=== PATIENT | female | born 1965 | race Caucasian/White ===

== ENCOUNTER → 2023-07-30 13:39 | Outpatient (REF) | payer OTHER, SELFPAY | LOC: HWRAD 13:39 | PROVIDERS: ATTENDING PHYSICIAN Family Medicine | DX: E03.9 Hypothyroidism, unspecified (principal) | CPT/HCPCS: 76536 ==

== ENCOUNTER → 2023-08-01 09:11 | Outpatient (REF) | payer OTHER, SELFPAY | LOC: HWRAD 09:11 | PROVIDERS: ATTENDING PHYSICIAN Internal Medicine Cardiovascular Disease; FAMILY PHYSICIAN Family Medicine; REFERRING PHYSICIAN Internal Medicine Rheumatology | DX: I65.21 Occlusion and stenosis of right carotid artery (principal); L40.50 Arthropathic psoriasis, unspecified; M15.9 Polyosteoarthritis, unspecified; M16.0 Bilateral primary osteoarthritis of hip; M25.50 Pain in unspecified joint | CPT/HCPCS: 71046; 72052; 73030; 73523; 93880 ==

== ENCOUNTER → 2023-08-05 11:56 | Outpatient (REF) | payer OTHER, SELFPAY | LOC: HWRAD 11:56 | PROVIDERS: ATTENDING PHYSICIAN Family Medicine | DX: Z78.0 Asymptomatic menopausal state (principal) | CPT/HCPCS: 77080 ==

== ENCOUNTER → 2023-12-23 16:20 | Outpatient (REF) | payer OTHER, SELFPAY | LOC: HWRAD 16:20 | PROVIDERS: ATTENDING PHYSICIAN Specialist; FAMILY PHYSICIAN Family Medicine | DX: N20.0 Calculus of kidney (principal) | CPT/HCPCS: 74018 ==

== ENCOUNTER → 2023-12-30 15:17 | Outpatient (REF) | payer OTHER, SELFPAY | LOC: HWRAD 15:17 | PROVIDERS: ATTENDING PHYSICIAN Specialist; FAMILY PHYSICIAN Family Medicine | DX: N20.0 Calculus of kidney (principal) | CPT/HCPCS: 74176 ==

== ENCOUNTER 2024-09-21 06:13 | Day surgery (SDC) | payer OTHER, SELFPAY ==
[2024-09-21 11:00] VITALS: BMI 24.2
[2024-09-21 11:03] VITALS: BP 137/83
[2024-09-21] MEDS: NORMOSOL-R/PLASMALYTE-A 1000 IV (11:17)
[2024-09-21] MEDS: TRANSDERM-SCOP 1 PATCH TRANSDERM (11:18)
[2024-09-21 12:50] VITALS: BP 123/86; BP 137/83
[2024-09-21 13:00] VITALS: BP 120/78
[2024-09-21] MEDS: Pyridium 200 MG PO (13:13)
[2024-09-21 13:15] VITALS: BP 123/90
[2024-09-21 13:30] VITALS: BP 113/76
[2024-09-21 13:45] VITALS: BP 116/81
== END 2024-09-21 14:00 | disposition home or self-care (01) ==
LOC: SDS 06:13
PROVIDERS: ATTENDING PHYSICIAN Specialist
DX: N20.0 Calculus of kidney (principal)
CPT/HCPCS: 52356; 74018; 76000; 82365; C1894; C2617

== ENCOUNTER 2024-09-23 17:02 | Inpatient (IN) | payer OTHER, SELFPAY ==
[2024-09-23 13:36] VITALS: BMI 27.8
[2024-09-23 13:39] VITALS: BP 168/106
[2024-09-23] MEDS: DECADRON 10 MG IV (16:02)
[2024-09-23] MEDS: NSS 1000 IV ×2 (16:03→20:46)
[2024-09-23] MEDS: PEPCID 20 MG IV (16:07)
--- NOTE | 2024-09-23 16:07 | ED.GENMED ---
History of Present Illness
General
Chief Complaint: Allergic Reaction
Source: patient, records and spouse
Exam Limitations: none
Time Seen by Provider: 09/23/24 15:35
Nursing documentation reviewed up to this point in time: agreed with
History of Present Illness
History of Present Illness:
59-year-old female long history of allergic reactions to latex, she claims she is allergic to plastic stents previously in [place] and for country, had a urologic procedure with a stent a few days ago since then she has had swelling of her face
itching took an EpiPen today, she would like to have her stent removed
Past History
Past History
ED Past Medical History: HTN, Hypercholesterolemia, Hypothyroidism and Other (Hepatitis C, cervical and lumbar disc disease, migraine headache, kidney stones)
ED Past Surgical History: Urological and Other (Right rotator cuff surgery 12/22/15)
Social History
Tobacco: Non-smoker
Alcohol: None
Drug: None
Personal:
Living: with family
Employment: Employed (realtor)
Family History
Family History: Other (nc)
Review of Systems
Review of Systems
All Other Systems: Not applicable
Constitutional: Denies fever or chills
Respiratory: Denies trouble breathing
ABD/GI: Reports no symptoms
Skin: Reports itching, rash and other (Facial)
Neurological: Reports no symptoms
Phy Exam
Physical Exam
Physical Exam:
Physical Exam
General: 59 female nontoxic scratching at her face and neck
Neck: Lips are slightly swollen
Heart: s1/s2 regular rate and rhythm, no murmur. equal radial pulses.
Lungs: No wheeze
Neuro: alert and oriented. no focal neurological deficits
Skin: Red skin
Psychiatric: well kept. interactive and cooperative
Extremities: no edema.
Course
Orders/Labs/Results
Orders:
Orders
09/23/24 15:45
IV Insert/Care/Rem.- Treatment PRN
0.9% Sodium Chloride 1000 ml [Nss] 1,000 ml IV BOLUS
Dexamethasone Sod Phosphate [Decadron] 10 mg IV NOW STA
Diphenhydramine [Benadryl] 25 mg IV NOW STA
Famotidine [Pepcid] 20 mg IV NOW STA
09/23/24 16:02
Complete Blood Count/With Diff Urgent
Comprehensive Metabolic Panel Urgent
09/23/24 16:40
Admit/Transfer Patient As Directed
Co-Sign Provider:
Level of Care: Inpatient admission
Assign to:: Telemetry
Physician / Group: Lauren Oconnell
Diagnosis: severe allergic reaction
Reason for Telemetry: Chest Pain syndromes
Date to Stop Telemetry: 09/25/24
Time to Stop Telemetry: 11:00
Reason for Hospitalization: severe allergic reaction
Expected length of stay greater than two midnights?: Yes
ELOS- Estimated Length of Stay in days: 2
I certify the patient meets the requirements for IP care: Yes
PRN Pain Medication Management As Directed
May give lesser potent ordered pain med per pt: Yes
preference::
Protocol:: Medication orders for pain may be administered in a
manner that supports deferring to patient preference
when the pt is:
- Requesting an ordered lesser potent pain medication.
Least to most potent pain medications are defined
as: acetaminophen < NSAID < tramadol < opioids
(morphine, oxycodone, hydromorphone).
- Requesting a lesser dose of the same medication IF
ORDERED.
- Requesting a less intrusive route of administration
if both routes are prescribed by the provider (PO <
IV).
09/23/24 16:41
Code Status As Directed
Resuscitation Status: Full Code
09/23/24 16:[address] Non Medication Order As Directed
Physician Order: please TT me when med rec complete
09/25/24 11:00
DC Protocol for Telemetry ONCE
Abnormal Lab Results
09/23/24
16:02
WBC 12.3 H 10^3/uL
(4.8-10.8)
Absolute Neuts (auto) 10.2 H 10^3/uL
(1.4-6.5)
Absolute Lymphs (auto) 1.1 L 10^3/uL
(1.2-3.4)
Absolute Monos (auto) 0.8 H 10^3/uL
(0.1-0.6)
Neutrophils % 82.7 H %
(42.2-75.2)
Lymphocytes % 8.7 L %
(20.5-51.1)
09/23/24 16:02
Vital Signs
Initial and Last Documented VS:
Initial Vital Signs
Temp Pulse Resp BP Pulse Ox
98.4 F 111 24 168/106 99
09/23/24 13:39 09/23/24 13:39 09/23/24 13:39 09/23/24 13:39 09/23/24 13:39
Last Documented Vital Signs
Temp Pulse Resp BP Pulse Ox
98.4 F 111 24 168/106 99
09/23/24 13:39 09/23/24 13:39 09/23/24 13:39 09/23/24 13:39 09/23/24 13:39
MDM/Problems Addressed
Differential Diagnosis Includes:
Allergic reaction perhaps to plastic stent perhaps the meds perhaps anesthesia
MDM/Problems Addressed:
Allergic rash
Chronic conditions affecting care:
Allergy
Acute Exacerbation and/or Progression of Chronic Illness:
Allergy
*Pulse Oximetry
Patient hypoxic: no
*Nylon Operator Interpretation
Rate: normal
Interpretation: normal
Heart Rate: 110
Rhythm: sinus
*Critical Care Note
Total Time (30-74mins, 75-104mins- exclusive of procedures): Not Applicable
Data Reviewed
Review of Other/Old Records Reveals: Other (Picture of the patient's face from today's really does look swollen and erythematous with hives)
Prescriptions/Medications Considered But Not Given:
Benadryl patient refused states she already took it today repeat epi dose
Further Testing Considered But Not Given:
Image
Update Note
Update Note:
Presumed allergic reaction patient hemodynamically stable did not improve with epinephrine reviewed with her treating physician still, severe consider taking her stent out
Reviewed with urology they will take her stent out asked hospitalist to admit her for recurrence of her symptoms and follow her renal function as stent will need to be taken out early
ED Attending Note
-
Portions of this chart may have been created with voice recognition software.� Occasional wrong word or��sound alike� substitutions may have occurred due to the inherent limitations of voice recognition software.
Discharge Plan
Departure
Patient Disposition: Admit
Date of Disposition: 09/23/24
Time of Disposition: 16:48
Admit to: Med/Surg
Presentation/result/management discussed w/ accepting MD/DO: Hospitalist
Patient with high blood pressure during this ER visit?: No
Condition: Fair
Discharge Problem:
Allergic reaction
Prescriptions:
No Action
alprazolam 0.5 MG tablet
0.5 mg PO DAILY PRN (Reason: panic attack/anxiety)
Patient Comments:
09/22/2022: last filled 07/29/22, 30 tabs for 30 days from [facility]
Bijuva 1 EACH capsule
1 ea PO HS
gabapentin 600 mg tablet
600 mg PO DAILY
levothyroxine 88 mcg tablet
88 mcg PO DAILY
zolpidem 10 mg tablet
10 mg PO HS PRN (Reason: insomnia)
Patient Comments:
09/22/2022: last filled 08/21/22, 30 tabs for 30 days from [facility]
ondansetron 4 mg tablet,disintegrating
4 mg PO DAILY PRN (Reason: nausea/vomiting)
mirabegron [Myrbetriq] 50 mg tablet extended release 24 hr
50 mg PO DAILY
Ajovy Syringe 225 mg/1.5 mL syringe
225 mg SC MONTHLY
carvedilol 12.5 mg Tablet
12.5 mg PO BID
amlodipine 10 mg Tablet
10 mg PO DAILY
potassium citrate 15 mEq tablet extended release
15 meq PO DAILY
Voquezna 10 mg Tablet
10 mg PO DAILY
Interventions
Interventions:
*Risk Screen - Suicide Last Done: 09/23/24 13:41
*Neglect/Abuse Screening Last Done: 09/23/24 13:41
Discharge Date and Time
Print Language: TRISTANIAN
[2024-09-23 16:11] VITALS: BP 132/81
[2024-09-23 16:18] LABS: % Basophils 0.5 % (0-2); % Eosinophils 1.5 % (0-6); % Immature Granulocytes 0.3 % (0-0.5); % Lymphocytes 8.7 % (20.5-51.1); % Monocytes 6.3 % (1.7-9.3); % Neutrophils 82.7 % (42.2-75.2); Absolute Basophils 0.1 10^3/uL (0-0.2); Absolute Eosinophils 0.2 10^3/uL (0-0.7); Absolute Lymphocytes 1.1 10^3/uL (1.2-3.4); Absolute Monocytes 0.8 10^3/uL (0.1-0.6); Absolute Neutrophils 10.2 10^3/uL (1.4-6.5); Hematocrit 40.8 % (37.0-47.0); Hemoglobin 13.7 g/dL (12.0-16.0); Mean Corp Hgb Conc. 33.6 g/dL (33.0-37.0); Mean Corpuscular Volume 89.5 fL (81.0-99.0); Mean Platelet Volume 10.2 fL (7.4-10.4); Nucleated Red Blood Cells % 0 %; Platelet Count 300 10^3/uL (130-400); Red Blood Cell Count 4.56 10^6/uL (4.20-5.40); Red Cell Dist. Width 13.5 % (11.5-14.5); White Blood Cell Count 12.3 10^3/uL (4.8-10.8)
--- NOTE | 2024-09-23 16:27 | HPS.HSE ---
Family Physician
-
Family Physician:
Chief Complaint
-
swelling
History of Present Illness
Ms. Tresa Deras is a 59 yo woman with hx essential HTN, HLD, hypothyroidism, allergy to lasix, nephrolithiasis s/p recent complex bilateral ureteroscopy with laser lithotripsy and placement of a bilateral J-stent placement (09/21/24) presents to the
ER with concerns she is having an allergic reaction to plastic stent.
This morning patient states she had mild lip swelling took benadryl. She then noted that her tongue was more swollen and it was difficult to swallow pills. She used her Epi pen with relief of swelling and came to the ER. Currently speaking and
swallowing okay.
Patient states she had a plastic stent placed years ago with similar reaction and it resolved once taken out. She was also prescribed amoxicillin and Vicadin post op which she states she has taken before without issue.
No fevers/chills. No chest pain or shortness of breath. No nausea/vomiting/diarrhea. No LE swelling.
Medical History
Past Medical History
Past Medical History: Reports Other ( essential HTN, HLD, hypothyroidism, allergy to lasix, nephrolithiasis s/p recent complex bilateral ureteroscopy with laser lithotripsy and placement of a bilateral J-stent placement)
Past Surgical History: Reports Urological
Social History
Tobacco: Non-smoker
Alcohol: None
Family History
Family History: Not pertinent
Allergies / Home Medications
Allergies reflects when Allergies were last updated in [employer].
Home Medications with original date entered in [employer]
Allergy/Medication List:
Allergies
Allergy/AdvReac Type Severity Reaction Status Date / Time
adhesive tape Allergy Rash and Verified 09/21/24 10:49
itching
bee venom protein (honey bee) Allergy Swelling Verified 09/21/24 10:49
doxycycline Allergy Rash, SOB Verified 09/21/24 10:49
latex Allergy Rash Verified 09/21/24 10:49
Sulfa (Sulfonamide Allergy Unknown Verified 09/21/24 10:49
Antibiotics)
Home Medications
alprazolam 0.5 mg tablet 0.5 mg PO DAILY PRN panic attack/anxiety 12/27/16
estradiol 1 mg-progesterone 100 mg capsule (Bijuva) 1 ea PO HS 01/20/20
fremanezumab-vfrm 225 mg/1.5 mL subcutaneous syringe (Ajovy Syringe) 225 mg SC MONTHLY 09/22/22
gabapentin 600 mg tablet 600 mg PO DAILY 09/22/22
levothyroxine 88 mcg tablet 88 mcg PO DAILY 09/22/22
mirabegron 50 mg tablet,extended release 24 hr (Myrbetriq) 50 mg PO DAILY 09/22/22
ondansetron 4 mg disintegrating tablet 4 mg PO DAILY PRN nausea/vomiting 09/22/22
zolpidem 10 mg tablet 10 mg PO HS PRN insomnia 09/22/22
amlodipine 10 mg tablet 10 mg PO DAILY 09/16/24
carvedilol 12.5 mg tablet 12.5 mg PO BID 09/16/24
potassium citrate 15 mEq (1,620 mg) tablet,extended release 15 meq PO DAILY 09/16/24
vonoprazan 10 mg tablet (Voquezna) 10 mg PO DAILY 09/16/24
*awaiting med rec
Review of Systems
-
History Source: Patient
A 12 point ROS was completed and negative except as noted: Yes
Physical Exam
Vital Signs
Vital Signs
Temp Pulse Resp BP Pulse Ox
98.4 F 111 24 168/106 99
09/23/24 13:39 09/23/24 13:39 09/23/24 13:39 09/23/24 13:39 09/23/24 13:39
Physical Exam
General: No Apparent Distress
HEENT: PERRLA and Other (currently without lip or tongue swelling)
Respiratory: Clear and Other (no stridor ); No Wheezes
Cardiac: Regular Rhythm and Shine's Sign
GI: Soft
Musculoskeletal: No Edema
Skin: Warm and Dry; No Rash
Neuro: AO x 3
Psych: Calm
Laboratory Results
-
09/23/24 16:02
Data Reviewed
-
Diagnostic Radiology: Report Reviewed by me
Lab Data: Labs Reviewed by me
Impression/Plan
-
Ms. Tresa Deras is a 59 yo woman with hx essential HTN, HLD, hypothyroidism, allergy to lasix, nephrolithiasis s/p recent complex bilateral ureteroscopy with laser lithotripsy and placement of a bilateral J-stent placement (09/21/24) presents to the
ER with concerns she is having an allergic reaction or plastic stent. She took Epi at home
Triage VS: T 98.4, P 111, RR 24, BP 168/106, SpO2 99%
LABS: WBC 12.3, Hg 13.7, PLT 300
MAR: Decadron 10mg IV x1, Benadryl 25mg IV x 1, Pepcid 20mg IV x 1, 1L bolus
Anaphylaxis with tongue and lip swelling now resolved s/p IM Benadryl self-administered at home
concern for allergic reaction to plastic stent as patient had similar reaction in past
-admit to tele
-continue PO Benadryl qhs PRN, daily claritin and pepcid for now
-Urology consulted, will take patient to OR today
-NPO for OR by Urology
-pain control
Nephrolithiasis s/p bilateral J stent placement 09/21/24
-follow up further Urology recs post stent removal
Essential HTN
HLD
Hypothyroidism
*awaiting med rec
DVT PPx SCD
FULL CODE
[2024-09-23 16:48] LABS: ALT (SGPT) 17 U/L (0-35); AST (SGOT) 15 U/L (14-36); Alkaline Phosphatase 69 U/L (38-126); Blood Urea Nitrogen 14 mg/dl (7-17); Calcium 9.3 mg/dl (8.4-10.2); Chloride 111 mmol/L (98-107); Glucose 112 mg/dl (70-99); Potassium 3.6 mmol/L (3.5-5.1); Sodium 141 mmol/L (135-145); Total Bilirubin 0.5 mg/dl (0.2-1.3); Total Protein 6.4 g/dl (6.3-8.2); eGFR > 60.00
[2024-09-23 17:03] LABS: Albumin 4.2 g/dl (3.5-5.0); Carbon Dioxide 24 mmol/L (22-30)
[2024-09-23 18:21] VITALS: BP 114/79
[2024-09-23 18:23] VITALS: BP 114/79
[2024-09-23] MEDS: DILAUDID 0.5 MG IV ×3 (18:54→23:46)
[2024-09-23 19:50] VITALS: BP 158/100; BMI 25.8
[2024-09-23] MEDS: ZOFRAN 4 MG IV (20:46)
[2024-09-23] MEDS: COREG 12.5 MG PO (21:08)
[2024-09-23 22:01] VITALS: BP 132/80
[2024-09-23] MEDS: NORVASC 10 MG PO (22:23)
[2024-09-23] MEDS: BENADRYL 50 MG PO (22:23)
[2024-09-23] MEDS: MELATONIN 5 MG PO (22:23)
[2024-09-24] VITALS (7 sets, daily range): BP systolic 116–143; BP diastolic 67–85
[2024-09-24] MEDS: AUGMENTIN 500 MG/125 MG 1 TABLET PO ×2 (00:27→12:05)
[2024-09-24] MEDS: DILAUDID 0.5 MG IV (01:33)
[2024-09-24] MEDS: ZOFRAN 4 MG IV (02:58)
--- NOTE | 2024-09-24 03:07 | W.PN.UPDATE ---
Update Note
Progress Note Update
RN reached out patient in 01/28 pain in right upper back, right abdomen pain towards the right groin, given extra doses of Dilaudid, heating pad still without relief. two episodes of nausea/vomiting, IV Zofran given, refused Valium. Denies chills or
fever. Stable VS. Bladder scan zero. voided with few clots. +BS, tender right lower abdomen right groin. Texted division human resources manager Urologist
will order CT abd/pelvis with out contrast
Urologist recommended IV Toradol, Flomax, NPO, CT abd/pelois
meanwhile RAPID response team was called as patient tried to call 911.
Patient seen and evaluated, she stated she is in pain and no body is doing CT Scan and that she is in pain.
Advised Urologist responded and CT scan order is in place and waiting for her turn. stable VS
IV Toradol, Flomax, NPO in place
CT done and results send to Urologist.
Patient resting in bed at present.
--- NOTE | 2024-09-24 03:19 | PTCARENOTE ---
Pt has been having severe, 10/10 R flank pain despite multiple doses of IV dilaudid. Pt also nauseous and began to throw up. Asked House Provider, Sylvia Ruth, to come to bedside. House Provider spoke with pt and asked me to reach out to Urology.
I tiger texted covering Urology with no response. House Provider also reached out to Urology. Pt declining PO valium, stating that 'valium is for anxiety, I'm not anxious, I'm in pain and I want to figure out the cause'. Pt has stated multiple times
that she is very concerned about her right kidney and that she doesn't 'want to lose my kidney'. Asked House Provider for CT scan to assess for stones. Orders in for STAT CT scan.
[2024-09-24 03:44] LABS: Glucose - Point of Care 126 mg/dl (70-99)
[2024-09-24] MEDS: TORADOL 30 MG IV (03:50)
[2024-09-24] MEDS: DILAUDID 1 MG IV ×3 (03:51→22:57)
[2024-09-24] MEDS: FLOMAX 0.4 MG PO (03:51)
--- NOTE | 2024-09-24 04:06 | RR ---
A Rapid Response was called on this patient, please see Rapid Response form. STAT CT scan ordered. Upon called CT scan, they said that they had multiple ED CT scans to get done first before they could take the pt. Urology had not answered multiple
tiger texts. Shortly after, pt rang the call gomez stating that she was going to call 911. Pt did not feel like she was getting the care or answers that she needed and repeatedly expressed concerns for her right kidney. Rapid response called. IV
toradol, IV dilaudid, and PO flomax administered. Pt taken to CT scan on stretcher.
[2024-09-24 06:50] LABS: Hematocrit 35.5 % (37.0-47.0); Mean Corp Hgb Conc. 33.8 g/dL (33.0-37.0); Mean Corpuscular Hgb 30.1 pg (27.0-31.0); Mean Platelet Volume 10.1 fL (7.4-10.4); Platelet Count 279 10^3/uL (130-400); Red Blood Cell Count 3.99 10^6/uL (4.20-5.40); Red Cell Dist. Width 13.5 % (11.5-14.5); White Blood Cell Count 18.2 10^3/uL (4.8-10.8)
[2024-09-24 07:16] LABS: Blood Urea Nitrogen 13 mg/dl (7-17); Calcium 8.6 mg/dl (8.4-10.2); Carbon Dioxide 23 mmol/L (22-30); Chloride 111 mmol/L (98-107); Estimated Creatinine Clearance 89 ml/min; Glucose 149 mg/dl (70-99); Magnesium 1.9 mg/dl (1.6-2.3); Sodium 140 mmol/L (135-145); eGFR > 60.00
[2024-09-24] MEDS: SYNTHROID PO (07:18)
--- NOTE | 2024-09-24 08:54 | W.PN.URO.CBU ---
Today's Communication / Plan
-
Trend pain
Toradol for inflammation
Continue antibiotics given positive UA and perinephric stranding/hydro on CT
F/U culture
Assessment / Plan
-
59F s/p bilateral ureteroscopy 09/21 presenting with systemic allergic reaction of unknown source
Ureteral stents removed at bedside 09/23. No obvious local mucosal reaction/inflammation in the bladder where stents lie
Low likelihood that ureteral stents were the cause of allergic reaction
Subsequent severe R flank pain and mild R hydronephrosis on CT scan
No obstructing stones present - some small stones in dependent renal pelvis b/l but hydro likely related to edema distally
Recommend observation and pain control
Pain significantly improved this morning
Toradol Q6H for pain and reduce any ureteral inflammation/edema
UTI
- Leukocytosis with R perinephric stranding and mild hydro, UA nit+ concerning for developing UTI
- Continue abx - on Augmentin, change to broader spec if any worsening signs
- Follow up culture
Diagnosis
-
Date of Service: September 24, 2024
-
Patient Diagnosis:
Kidney stones
Ureteral stent colic
Allergic reaction
Post Op Day:
Subjective
-
R flank pain overnight with R hydro on CT
Resolved this AM and she feels well
Objective
-
Vital Signs
Temp Pulse Resp BP Pulse Ox
98.2 F 78 16 124/82 96
09/24/24 07:51 09/24/24 07:51 09/24/24 07:51 09/24/24 07:51 09/24/24 08:03
Intake and Output
09/23/24 09/24/24 09/25/24
06:59 06:59 06:59
Intake Total 1000 / 1000
Balance 1000 / 1000
Intake:
IV fluids (Total) 1000 / 1000
Other:
Number of approximated MODERATE 2
amounts of urine
Number of immeasurable emeses? 3
Laboratory Results
09/24/24 06:33
09/24/24 06:33
Physical Exam
-
General - well developed, well nourished, no acute distress
Chest - clear
Abdomen - soft, non-tender
[2024-09-24] MEDS: COREG 12.5 MG PO ×2 (09:42→21:04)
[2024-09-24] MEDS: MYRBETRIQ EXTENDED RELEASE 50 MG PO (09:42)
[2024-09-24] MEDS: NEURONTIN 600 MG PO (09:42)
[2024-09-24] MEDS: CLARITIN 10 MG PO (09:42)
[2024-09-24] MEDS: UROCIT-K 15 MEQ PO (09:43)
[2024-09-24] MEDS: TORADOL 15 MG IV ×3 (09:45→21:04)
[2024-09-24] MEDS: PEPCID 20 MG PO (09:45)
[2024-09-24] MEDS: FLUSH (NSS) 1 FLUSH IV ×3 (09:45→17:18)
[2024-09-24 09:54] LABS: Urine Albumin 3+ (Neg - Trace); Urine Bilirubin 3+ (Negative); Urine Character Cloudy (Clear); Urine Color Amber; Urine Glucose Negative (Negative); Urine Ketone Negative (Negative); Urine Leukocyte 3+ (Negative); Urine Nitrite Positive (Negative); Urine Occult Blood 4+ (Negative); Urine Specific Gravity 1.015 (<1.030); Urine Urobilinogen 3+ (Neg - 1+); Urine pH 6.5 (5.0-9.0)
[2024-09-24 10:26] LABS: Urine Amorphous Seen; Urine Bacteria Many (Negative); Urine Red Blood Cell >100 /HPF (0-2); Urine Squamous Cell 0-2 /LPF (Few); Urine White Cell 16-20 /HPF (0-5)
--- NOTE | 2024-09-24 12:24 | W.PN.HOSP.TC ---
Today's Communication/Plan
-
Monitor vital signs see plan
Concern for pyelonephritis
Start ceftriaxone
Monitor leukocytosis
Urology following
Check blood culture
Assessment / Plan
Assessment / Plan
General: No Apparent Distress
HEENT: PERRLA and Other (currently without lip or tongue swelling)
Respiratory: Clear and Other (no stridor ); No Wheezes
Cardiac: Regular Rhythm
GI: Soft
Musculoskeletal: No Edema
Neuro: AO x 3
Psych: Calm
Anaphylaxis with tongue and lip swelling now resolved s/p IM Benadryl self-administered at home
concern for allergic reaction to plastic stent as patient had similar reaction in past
-continue PO Benadryl qhs PRN, daily claritin and pepcid for now
-Urology following
-pain control
Sepsis likely 2/2 UTI/Pyelonephritis
ucx pending
Discussed with urology, patient should be monitored in the hospital. Check blood culture.
start CFTX
Nephrolithiasis s/p bilateral J stent placement 09/21/24
-follow up further Urology recs post stent removal
Essential HTN
HLD
Hypothyroidism
Anxiety
DVT PPx SCD
FULL CODE
I spent a total of 52 minutes with the patient or on the floor. More than 50% of this time involved counseling and coordination of care.
Anticipated Discharge: 24 - 48 hours
Subjective/Interval History
-
Date of Service: September 24, 2024
denies pain
Objective Data
-
Labs:
Laboratory Results
09/24/24
06:33
WBC 18.2 H
Hgb 12.0
Hct 35.5 L
Plt Count 279
Sodium 140
Potassium 4.0
Chloride 111 H
Carbon Dioxide 23
BUN 13
Creatinine 0.6
Glucose 149 H
Calcium 8.6
Vital Signs:
Vital Signs
Temp Pulse Resp BP Pulse Ox
97.8 F 84 18 121/74 96
09/24/24 12:12 09/24/24 12:12 09/24/24 12:12 09/24/24 12:12 09/24/24 12:12
I&O
09/23/24 09/24/24 09/25/24
06:59 06:59 06:59
Intake Total 1000 / 1000
Balance 1000 / 1000
--- NOTE | 2024-09-24 13:12 | CM ---
CM following re: discharge planning. ,
Reviewed pt's chart, met with pt.
Pt is a 59 year old female, admitted with primary dx of Anaphylaxis with tongue and lip swelling.
Pt reports she lives with 2SH, 3 steps to enter, has 2 supportive children. 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
PCP: Nabil Calderón
Pharmacy: [facility]
D/C plan: home with anticipated no needs. Spouse to transport at discharge.
CM will follow with discharge plan updates as hospitalization progresses
[2024-09-24] MEDS: STERILE WATER FOR INJECTION 10 ML IV (13:46)
[2024-09-24] MEDS: ROCEPHIN 1000 MG IV (13:46)
--- NOTE | 2024-09-24 15:35 | PN.CDI ---
CDI
- -
CDI:
Physician Documentation Request
Admit Date: 09/23/24 17:02
Dear Doctor Nelson,
ER Physician Documentation: 'had a urologic procedure with a stent a few days ago since then she has had swelling of her face itching took an EpiPen today'
09/24 Hospitalist PN: 'Anaphylaxis with tongue and lip swelling now resolved s/p IM Benadryl self-administered at home concern for allergic reaction to plastic stent as patient had similar reaction in past'
Please clarify the following:
Anaphylaxis is a complication of the surgery
Anaphylaxis is unexpected but is NOT a complication of the surgery
Anaphylaxis is an expected occurrence and is not a complication of surgery
Anaphylaxis is inherent to/unavoidable during the surgery and is not a complication
Other
Use of terms such as suspected, likely, concern for, or probable (associated with a specific diagnosis that is being evaluated, monitored, or treated as if it exists) are acceptable and can be coded in the inpatient setting, when documented at the
time of discharge.
Thank you,
Jenny Bauer RN, BSN
CDI Specialist
Available via [place] text
Please use your independent medical judgment in providing your response.
--- NOTE | 2024-09-24 15:51 | PTCARENOTE ---
Pt AAO x3, MOBLEY well, ambulatory in room/to BR; shannan well. Pt angry re'CT scan of abd/pelvis results; stated 'The urologist told me I had no more stones in my kidneys'. Pt concerns TT to Dr. Dale. VSS. Telemetry:NSR. On room air- pulse ox 99%.
Abd large, soft,t ol PO well. Voids dark libia urine in BR. Afebrile; skin W/D/I. Resting in bed at present. Will continue to monitor.
--- NOTE | 2024-09-24 20:27 | W.PN.UPDATE ---
Update Note
Progress Note Update
stable no sob passing stone min rt colic will go home if feems well tonight i increaed iv fluid sto help propel stones if posible
[2024-09-24] MEDS: NSS 1000 IV (20:35)
[2024-09-24] MEDS: NORVASC 10 MG PO (21:04)
[2024-09-24] MEDS: BENADRYL 50 MG PO (22:57)
[2024-09-25] MEDS: NSS 1000 IV (02:17)
[2024-09-25 03:29] VITALS: BP 124/66
[2024-09-25] MEDS: TORADOL 15 MG IV ×2 (05:00→14:44)
[2024-09-25] MEDS: SYNTHROID 88 MCG PO (05:55)
[2024-09-25] MEDS: PEPCID 20 MG PO (06:13)
[2024-09-25 07:07] LABS: % Basophils 0.2 % (0-2); % Eosinophils 0.8 % (0-6); % Immature Granulocytes 0.3 % (0-0.5); % Lymphocytes 12.6 % (20.5-51.1); % Monocytes 7.2 % (1.7-9.3); % Neutrophils 78.9 % (42.2-75.2); Absolute Eosinophils 0.1 10^3/uL (0-0.7); Absolute Lymphocytes 1.5 10^3/uL (1.2-3.4); Absolute Monocytes 0.8 10^3/uL (0.1-0.6); Absolute Neutrophils 9.3 10^3/uL (1.4-6.5); Hematocrit 37.6 % (37.0-47.0); Hemoglobin 12.4 g/dL (12.0-16.0); Mean Corpuscular Volume 90.8 fL (81.0-99.0); Mean Platelet Volume 9.9 fL (7.4-10.4); Nucleated Red Blood Cells % 0 %; Platelet Count 306 10^3/uL (130-400); Red Blood Cell Count 4.14 10^6/uL (4.20-5.40); Red Cell Dist. Width 13.7 % (11.5-14.5); White Blood Cell Count 11.7 10^3/uL (4.8-10.8)
[2024-09-25 07:34] LABS: ALT (SGPT) 16 U/L (0-35); AST (SGOT) 14 U/L (14-36); Albumin 3.9 g/dl (3.5-5.0); Alkaline Phosphatase 58 U/L (38-126); Blood Urea Nitrogen 20 mg/dl (7-17); Calcium 8.6 mg/dl (8.4-10.2); Carbon Dioxide 24 mmol/L (22-30); Chloride 112 mmol/L (98-107); Estimated Creatinine Clearance 89 ml/min; Glucose 91 mg/dl (70-99); Potassium 4.2 mmol/L (3.5-5.1); Sodium 139 mmol/L (135-145); Total Bilirubin 0.6 mg/dl (0.2-1.3); eGFR > 60.00
[2024-09-25 07:40] VITALS: BP 110/70
[2024-09-25] MEDS: MYRBETRIQ EXTENDED RELEASE 50 MG PO (09:28)
[2024-09-25] MEDS: CLARITIN 10 MG PO (09:29)
[2024-09-25] MEDS: UROCIT-K 15 MEQ PO (09:29)
[2024-09-25] MEDS: COREG 12.5 MG PO (09:29)
[2024-09-25] MEDS: NEURONTIN PO (09:34)
[2024-09-25] MEDS: DILAUDID 1 MG IV (09:38)
[2024-09-25] MEDS: TORADOL IV (11:09)
--- NOTE | 2024-09-25 11:10 | W.PN.HOSP.TC ---
Addendum entered and electronically signed by Alvaro Damon MD 09/25/24 13:29:
Time of discharge 37-minutes
Addendum entered and electronically signed by Alvaro Damon MD 09/25/24 11:16:
Anaphylaxis, unable to comment if an expected occurrence of surgery
Original Note:
Today's Communication/Plan
-
Monitor vital signs see plan
Pain control
If blood culture negative for 24 hours then discharge today
Monitor leukocytosis, patient will get repeat labs by PCP next week
Will transition to p.o. antibiotics on discharge
Assessment / Plan
Assessment / Plan
General: No Apparent Distress
HEENT: PERRLA and Other (currently without lip or tongue swelling)
Respiratory: Clear and Other (no stridor ); No Wheezes
Cardiac: Regular Rhythm
GI: Soft
Musculoskeletal: No Edema
Neuro: AO x 3
Psych: Calm
Anaphylaxis with tongue and lip swelling now resolved s/p IM Benadryl self-administered at home
concern for allergic reaction to plastic stent as patient had similar reaction in past
-continue PO Benadryl qhs PRN, daily claritin and pepcid for now
-Urology following
-pain control
Sepsis likely 2/2 UTI/Pyelonephritis
ucx no growth; but appears responded to ceftriaxone. Will switch to cefdinir on discharge
Waiting blood culture evaluated today and if negative for 24 hours then discharge. Discussed with urology
start CFTX
Nephrolithiasis s/p bilateral J stent placement 09/21/24
-follow up further Urology recs; patient will follow-up with urology outpatient
Essential HTN
HLD
Hypothyroidism
Anxiety
DVT PPx SCD
FULL CODE
Anticipated Discharge: Today
Subjective/Interval History
-
Date of Service: September 25, 2024
denies nausea
Objective Data
-
Labs:
Laboratory Results
09/25/24
06:47
WBC 11.7 H
Hgb 12.4
Hct 37.6
Plt Count 306
Sodium 139
Potassium 4.2
Chloride 112 H
Carbon Dioxide 24
BUN 20 H
Creatinine 0.6
Glucose 91
Calcium 8.6
Total Bilirubin 0.6
AST 14
ALT 16
Alkaline Phosphatase 58
Vital Signs:
Vital Signs
Temp Pulse Resp BP Pulse Ox
97.8 F 83 18 110/70 95
09/25/24 07:40 09/25/24 09:29 09/25/24 07:40 09/25/24 09:29 09/25/24 07:40
I&O
09/24/24 09/25/24 09/26/24
06:59 06:59 06:59
Intake Total 1000 / 1000 1100 / 1100
Output Total 100 / 100
Balance 1000 / 1000 1000 / 1000
[2024-09-25 11:20] VITALS: BP 131/78
--- NOTE | 2024-09-25 13:45 | W.DCSUMMARY ---
Discharge Summary
Discharge Data
Date of Admission: 09/23/24
Date of Discharge: 09/25/24
-
Pending Results: Yes
Hospital Course
59-year-old female with past medical history of recent nephrolithiasis status post bilateral stent placement, essential hypertension, hyperlipidemia, hypothyroidism, anxiety, multiple drug allergies with anaphylaxis came to the hospital for possible
anaphylaxis to recent plastic stent per patient. Patient took epinephrine at home prior to coming to the hospital and her symptoms were already improving when she got to the hospital. While in the hospital her symptoms resolved and patient was
given some Benadryl Claritin and Pepcid. Patient was seen by urology given recent stent. She also developed abdominal pain and CT scan was done which showed perinephric stranding and edema concerning for possible pyelonephritis. Patient white
count was also elevated. Patient was initially started on IV antibiotics which were later transitioned to p.o. antibiotics on discharge. Blood cultures were done and they were negative for 24 hours. Patient was instructed to follow-up with
urology closely for final blood culture. Urine culture did not grow any bacteria. Once patient symptoms continue to improve, she was then discharged home with instructions to follow-up with all her physicians outpatient.
Discharge Plan
-
Patient Disposition: Home (Routine Discharge)
Discharge Diagnosis/Procedures: Anaphylaxis with concern for allergic reaction to plastic stent
Sepsis likely secondary to urinary tract infection/pyelonephritis
Nephrolithiasis
Diet: As tolerated
Activity: As tolerated
Driving Restrictions: As prior to admission
Blood Work: CBC and BMP next week with primary care provider
Activity Restrictions/Additional Instructions:
Continue probiotics until done with antibiotic
Referrals:
Nabil Calderón DO [Family Provider, Family Practice] - in less than 1 week
Vinay Dale MD [Active, Urology] - in less than 1 week
Prescriptions:
New
acetaminophen 325 mg Tablet
650 mg PO Q4HPRN PRN (Reason: mild pain/DODD/temp> 100.4F) Qty: 0 0RF
famotidine 20 mg Tablet
20 mg PO DAILY Qty: 5 0RF
loratadine 10 mg Tablet
10 mg PO DAILY Qty: 5 0RF
cefdinir 300 mg capsule
300 mg PO BID Qty: 24 0RF
Probiotic 10 billion cell capsule
10,000 mmu cells PO DAILY Qty: 1 0RF
hydrocodone-acetaminophen 7.5-300 mg tablet
1 tab PO Q6H PRN (Reason: Pain) Qty: 15 0RF
Continued
alprazolam 0.5 MG tablet
0.5 mg PO DAILY PRN (Reason: panic attack/anxiety)
Patient Comments:
09/22/2022: last filled 07/29/22, 30 tabs for 30 days from [facility]
Bijuva 1 EACH capsule
1 ea PO HS
gabapentin 600 mg tablet
600 mg PO DAILY
levothyroxine 88 mcg tablet
88 mcg PO DAILY
zolpidem 10 mg tablet
10 mg PO HS PRN (Reason: insomnia)
Patient Comments:
09/22/2022: last filled 08/21/22, 30 tabs for 30 days from [facility]
ondansetron 4 mg tablet,disintegrating
4 mg PO DAILY PRN (Reason: nausea/vomiting)
mirabegron [Myrbetriq] 50 mg tablet extended release 24 hr
50 mg PO DAILY
Ajovy Syringe 225 mg/1.5 mL syringe
225 mg SC MONTHLY
carvedilol 12.5 mg Tablet
12.5 mg PO BID
amlodipine 10 mg Tablet
10 mg PO DAILY
potassium citrate 15 mEq tablet extended release
15 meq PO DAILY
Voquezna 10 mg Tablet
10 mg PO DAILY
Discontinued
amoxicillin-pot clavulanate 500-125 mg Tablet
500 tab PO Q12H
Rx Instructions:
To be taken until 09/27
Discharge Orders:
Discharge Patient (As Directed); Ordered 09/25/24
Ordered By: Alvaro Damon
Discharge Date and Time
Discharge Date/Time: 09/25/24 15:28
Print Language: SPANISH
[2024-09-25 14:22] VITALS: BP 134/80
[2024-09-25] MEDS: ROCEPHIN IV (14:37)
[2024-09-25] MEDS: STERILE WATER FOR INJECTION IV (14:37)
== END 2024-09-25 15:28 | disposition home or self-care (01) | DRG 915 ==
LOC: 4 EAST ACU 17:02
PROVIDERS: Urology; ADMITTING PHYSICIAN Student in an Organized Health Care Education/Training Program; ATTENDING PHYSICIAN Internal Medicine; EMERGENCY PHYSICIAN Emergency Medicine; FAMILY PHYSICIAN Family Medicine
DX: T78.2XXA Anaphylactic shock, unspecified, initial encounter (principal); A41.9 Sepsis, unspecified organism; N12 Tubulo-interstitial nephritis, not specified as acute or chronic; I10 Essential (primary) hypertension; E78.00 Pure hypercholesterolemia, unspecified; E03.9 Hypothyroidism, unspecified; F41.0 Panic disorder [episodic paroxysmal anxiety]; Y82.8 Other medical devices associated with adverse incidents
CPT/HCPCS: 74176; 80048; 80053; 81003; 81015; 82962; 83735; 85025; 85027; 87040; 87086; 96361; 96374; 96375; 99284

== ENCOUNTER → 2024-09-28 13:13 | Outpatient (REF) | payer OTHER, SELFPAY | LOC: HWRAD 13:13 | PROVIDERS: ATTENDING PHYSICIAN Nurse Practitioner Acute Care; FAMILY PHYSICIAN Family Medicine | DX: M48.062 Spinal stenosis, lumbar region with neurogenic claudication (principal); Z98.1 Arthrodesis status | CPT/HCPCS: 72131 ==

== ENCOUNTER 2025-04-12 08:10 | Day surgery (SDC) | payer OTHER, SELFPAY ==
[2025-03-31 13:17] VITALS: BMI 25.2
[2025-03-31 13:39] LABS: Hematocrit 43.7 % (37.0-47.0); Hemoglobin 14.6 g/dL (12.0-16.0); Mean Corp Hgb Conc. 33.4 g/dL (33.0-37.0); Mean Corpuscular Volume 90.7 fL (81.0-99.0); Nucleated Red Blood Cells % 0 %; Platelet Count 358 10^3/uL (130-400); Red Cell Dist. Width 14.7 % (11.5-14.5)
[2025-03-31 14:20] LABS: ALT (SGPT) 26 U/L (0-35); AST (SGOT) 24 U/L (14-36); Albumin 4.5 g/dl (3.5-5.0); Alkaline Phosphatase 71 U/L (38-126); Blood Urea Nitrogen 13 mg/dl (7-17); Calcium 9.8 mg/dl (8.4-10.2); Carbon Dioxide 24 mmol/L (22-30); Chloride 106 mmol/L (98-107); Estimated Creatinine Clearance 80 ml/min; Glucose 104 mg/dl (70-99); Potassium 4.2 mmol/L (3.5-5.1); Sodium 137 mmol/L (135-145); Total Protein 7.0 g/dl (6.3-8.2); eGFR > 60.00
[2025-04-12] VITALS (15 sets, daily range): BP systolic 111–133; BP diastolic 65–84
[2025-04-12] MEDS: NSS 206 ML IV (09:47)
--- NOTE | 2025-04-12 09:48 | PTCARENOTE ---
pt extreamely anxious continually stating she wants to wake up from procedure . also staating she is in fear of having adhesive reaction as she has had in the past. pt does have some readness around v lead on left upper chest , but no other area
where leads are. benadry was offered. pt refuses at this time . 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 will continue to monitor
--- NOTE | 2025-04-12 11:04 | ITS.CL.PN ---
Addendum entered and electronically signed by Del Agosto MD 04/12/25 14:11:
Correction:
Copy to: Dr. Fawad John MD (airplane first officer); Dr. Nabil Calderón DO (PCP)
Original Note:
Nip Wrapper - Procedure Note
Procedure
Procedure Note:
CARDIAC CATHETERIZATION REPORT
Date of Procedure: 04/12/2025
Referring: Dr. Fawad John MD
Indication: anginal chest pain
PROCEDURE(S)
1. left heart catheterization
2. coronary angiography
ACCESS: 6F right radial artery (closure: radial band)
CATHETERS
1. 6F JR4
2. 6F JL3.5
MODERATE SEDATION: 25 minutes of moderate sedation was utilized. An independent director biomedical engineering was present to assist with and help manage the patient's level of consciousness and physiologic status.
HEMODYNAMIC DATA
LV 116/5 (EDP 11) mmHg
AO 112/72 (mean 90) mmHg
CORONARY ANGIOGRAPHY
Dominance: Right
LM: Large, normal
LAD: Large vessel giving rise to a small D1/ramus and large D2 before wrapping around the apex. There are trivial luminal irregularities only.
LCx: Large vessel giving rise to a large OM1, large branching OM2, and small LPL branch. There is no coronary artery disease.
RCA: Large vessel giving rise to a large RPDA, small RPL1, small RPL2, and moderate caliber RPL3. There is no coronary artery disease.
RADIATION: dose 140 mGy; DAP 9 Gy*cm2; fluoroscopy time 2.3 min
CONCLUSIONS
1. Nonobstructive coronary artery disease as described in right dominant system
2. Normal LV filling pressure and no aortic stenosis
RECOMMENDATIONS
1. Workup for etiology of dyspnea and chest pain not related to epicardial coronary artery disease
2. Primary prevention of CAD
Copy to: Dr. Fawad John MD (airplane first officer); ED Saenz (PCP)
Signed: Del Agosto MD, PhD
== END 2025-04-12 14:35 | disposition home or self-care (01) ==
LOC: CATH 08:10
PROVIDERS: ATTENDING PHYSICIAN Student in an Organized Health Care Education/Training Program; FAMILY PHYSICIAN Family Medicine; OTHER PHYSICIAN Internal Medicine Cardiovascular Disease
DX: I25.119 Atherosclerotic heart disease of native coronary artery with unspecified angina pectoris (principal); E03.9 Hypothyroidism, unspecified; E78.5 Hyperlipidemia, unspecified; F41.9 Anxiety disorder, unspecified; I10 Essential (primary) hypertension; I48.0 Paroxysmal atrial fibrillation; L40.50 Arthropathic psoriasis, unspecified; M85.80 Other specified disorders of bone density and structure, unspecified site; N32.81 Overactive bladder; Z79.82 Long term (current) use of aspirin; Z79.890 Hormone replacement therapy; Z79.899 Other long term (current) drug therapy; Z86.0100 Personal history of colon polyps, unspecified; Z86.19 Personal history of other infectious and parasitic diseases; Z87.442 Personal history of urinary calculi; Z87.440 Personal history of urinary (tract) infections; Z87.19 Personal history of other diseases of the digestive system; Z88.1 Allergy status to other antibiotic agents; Z88.2 Allergy status to sulfonamides; Z91.030 Bee allergy status; Z91.040 Latex allergy status; Z91.048 Other nonmedicinal substance allergy status; Z98.1 Arthrodesis status
CPT/HCPCS: 99152; 99153; 36415; 80053; 85025; 93005; 93458; C1769; Q9967